=== PATIENT | female | born 1950 | race Caucasian/White ===

== ENCOUNTER → 2017-10-04 | Outpatient (CLI) | payer MEDICARE, OTHER | END | disposition home or self-care (01) | LOC: KCIC MAMMO 13:19 | DX: Z12.31 Encounter for screening mammogram for malignant neoplasm of breast (principal) | CPT/HCPCS: 77063; 77067 ==

== ENCOUNTER → 2019-12-04 | Outpatient (CLI) | payer MEDICARE ==
--- NOTE | 2019-12-04 18:12 | KCIC ---
Bilateral digital screening mammograms: Reason for examination: Routine screening. Comparison is made to previous studies dated 10/04/2017 and 01/04/2016. Interpretation is made with the benefit of CAD. The skin and nipples show no abnormalities. No abnormal lymph nodes are seen. The breast parenchyma is predominantly fatty. (Breast density: Category A.) There are no dominant masses, suspicious calcifications or architectural distortions. Impression: No evidence of malignancy. Recommend routine screening. BI-RADS Category 1: Negative. "Our facility is accredited by the [employer] Mammography [employer]." This patient's information has been entered into a reminder system for the patient to be notified with the results of her examination and a target date for the next mammogram. Electronically signed by: Maria Alejandra Pavon MD (12/04/2019 6:09 PM) [id number]
== END | disposition home or self-care (01) ==
LOC: KCIC MAMMO 14:29
PROVIDERS: ATTEND Family Medicine
DX: Z12.31 Encounter for screening mammogram for malignant neoplasm of breast (principal)
CPT/HCPCS: 77067

== ENCOUNTER → 2020-06-07 | Outpatient (CLI) | payer MEDICARE ==
--- NOTE | 2020-06-07 15:22 | KCIC ---
EXAM: DUAL ENERGY X-RAY ABSORPTIOMETRY (DEXA). HISTORY: Postmenopausal screening. FINDINGS: The lowest measured T-score is -1.7 in the lumbar spine, based on a bone mineral density of 0.861 g/cm^2. Refer to the worksheets for full detail. In comparison with the prior study of 01/12/2016, average bone mineral density at the lumbar spine chow s changed -2.0%, while the average density at the hips has changed -2.2%. IMPRESSION: Low bone mass. Bone mineral density yields a T-score between -1.0 and -2.5. Fracture risk is increase d. FRAX was not calculated. METHODOLOGY: Dual energy x-ray absorptiometry was performed to measure bone mineral density. The foll owing analysis is based on the 2019 Official Positions of the International Society for Clinical Dens itometry: Measurements of the hips and the average of L1-L4 are preferred. When the spine and/or hip cannot be feasibly measured or interpreted, or in the setting of hyperparathyroidism, distal radial bone minera l density may be measured. The lumbar spine T-score is based on the average bone mineral density of L1-L4. In the setting of art ifact or anatomic abnormality, some lumbar levels may be excluded, and the remaining levels used for calculation. A single lumbar level is not used for diagnosis, and if only a single level is available for assessment, another anatomic site will be used to assign a diagnosis. The hip T-score is based on the bone mineral density measurement of the femoral neck or total proxima l femur of either side, whichever is lowest. Bilateral mean values are not used for diagnosis. The forearm T-score is derived from 33% of the distal radius of the nondominant forearm. For postmenopausal and perimenopausal women, and men age 50 or older, of all ethnic groups, T-scores are calculated through comparison of the current measurement with the NHANES III database standard fo r females aged 20-29 years. The lowest T-score of the evaluated anatomic sites is used to a ssign a diagnosis based on the World Health Organization densitometric classification. In premenopausal females and males younger than age 50, a Z-score is calculated based on population s pecific reference data for patient sex and self-reported ethnicity. Electronically signed by: Harvey Moraes MD (06/07/2020 3:20 PM) [facility]
== END ==
LOC: KCIC DEXA 12:21
PROVIDERS: ATTEND Physician Assistant Medical
DX: Z78.0 Asymptomatic menopausal state (principal)
CPT/HCPCS: 77080